=== PATIENT | male | born 1970 | race Caucasian/White ===

== ENCOUNTER 2017-03-20 07:35 | Emergency (ER) | payer MEDICARE, OTHER ==
[2017-03-20 07:56] VITALS: PULSE 84; RESP 18; TEMP 97.5; O2SAT 98
[2017-03-20 09:50] VITALS: BP 140/86
== END 2017-03-20 08:30 | disposition home or self-care (01) | DRG 153 ==
LOC: ED 07:35
DX: J06.9 Acute upper respiratory infection, unspecified (principal)
CPT/HCPCS: 87430; 99282

== ENCOUNTER 2018-07-05 07:42 | Emergency (ER) | payer MEDICARE, OTHER ==
[2018-07-05] MEDS ORDERED: LORAZEPAM 0.5 MG TAB PO ONE (09:18)
[2018-07-05 10:50] LABS: BASOPHILS % (AUTO) 1 % (0-3); EOSINOPHILS % (AUTO) 0 % (0-9); HEMATOCRIT 52 % (39-53); HEMOGLOBIN 17.8 gm/dl (13.5-17.7); LYMPHOCYTES % (AUTO) 12.5 % (10-50); MEAN CORPUSCULAR HEMOGLOBIN 30.3 pg (27.0-32.0); MEAN CORPUSCULAR VOLUME 89 fL (80-100); MONOCYTES % (AUTO) 4.5 % (0-12); NEUTROPHILS % (AUTO) 81.9 % (37-80)
[2018-07-05 11:05] LABS: BILIRUBIN,TOTAL 0.7 mg/dl (0.2-1.0); CALCIUM 8.7 mg/dl (8.5-10.1); CARBON DIOXIDE 29.2 mEq/L (21-32); CREATININE 0.86 mg/dl (0.80-1.30); POTASSIUM 3.6 mMol/L (3.5-5.1); TOTAL PROTEIN 7.8 gm/dl (6.4-8.2)
[2018-07-05 11:52] VITALS: BP 170/112; PULSE 68; RESP 20; TEMP 96.8; O2SAT 98
== END 2018-07-05 11:35 | disposition home or self-care (01) | DRG 305 ==
LOC: ED 07:42
DX: I10 Essential (primary) hypertension (principal); R42 Dizziness and giddiness
CPT/HCPCS: 36415; 80053; 85025; 99282; 99283